=== PATIENT | male | born 1960 | race Caucasian/White ===

== ENCOUNTER 2021-08-28 23:42 | Emergency (ER) | payer SELFPAY ==
[~2021-08-28] VITALS: Ht 162.6 cm; Wt 73.0 kg
[2021-08-28 23:55] VITALS: BP 114/76
[2021-08-29] MEDS ORDERED: VISCOUS LIDOCAINE 2% 15 ML UDC MM PRN (00:30)
[2021-08-29] MEDS ORDERED: IBUPROFEN 600MG TABLET PO ONE (00:30)
[2021-08-29] MEDS ORDERED: BENZ1LOZ60 MT (02:54)
== END 2021-08-29 03:24 | disposition home or self-care (01) ==
LOC: ER 23:42
DX: J02.9 Acute pharyngitis, unspecified (principal)
CPT/HCPCS: 87070; 87430; 99283

== ENCOUNTER 2022-07-17 15:44 | Emergency (ER) | payer MEDICAID ==
[~2022-07-17] VITALS: Ht 165.1 cm; Wt 75.0 kg
[~2022-07-17 15:44] MED LIST: BENZ1LOZ73 MT
[2022-07-17 17:23] LABS: BASOPHILS % 0.4 % (0.0-2.0); HEMATOCRIT. 37.5 % (42.0-52.0); HEMOGLOBIN. 13.2 g/dL (14.0-18.0); LYMPHOCYTES % 7.6 % (20.0-50.0); MEAN CORPUSCULAR HEMOGLOBIN 35.1 pg (28.0-32.0); MEAN CORPUSCULAR VOLUME 99.5 fL (80.0-94.0); MEAN PLATELET VOLUME 6.7 fl (7.4-10.4); MONOCYTES % 5.5 % (2.0-8.0); NEUTROPHILS % 86.5 % (40.0-76.0); PLATELET 192 x1000/uL (130-400); RED BLOOD CELL COUNT 3.77 mill/uL (4.7-6.1); RED CELL DISTRIBUTION WIDTH 14.4 % (11.6-14.6)
[2022-07-17 17:27] LABS: CHLORIDE 106 mEq/L (98-107)
[2022-07-17 19:15] VITALS: BP 114/84
== END 2022-07-17 19:29 | disposition home or self-care (01) ==
LOC: ER 15:44
DX: R06.02 Shortness of breath (principal); C71.9 Malignant neoplasm of brain, unspecified; Z86.73 Personal history of transient ischemic attack (TIA), and cerebral infarction without residual deficits
CPT/HCPCS: 36415; 71045; 80053; 83880; 84484; 85025; 93005; 99285